=== PATIENT | male | born 2000 | race Caucasian/White ===

== ENCOUNTER 2020-01-03 10:51 | Emergency (ER) | payer SELFPAY | END 2020-01-03 11:08 | disposition left against medical advice (07) | LOC: JD.ED 10:51 | DX: Z53.21 Procedure and treatment not carried out due to patient leaving prior to being seen by health care provider (principal) ==

== ENCOUNTER 2022-04-23 13:20 | Emergency (ER) | payer SELFPAY ==
[2022-04-23] MEDS ORDERED: Ketorolac 60 MG/2 ML SDV IM ONE (14:32)
== END 2022-04-23 15:24 | disposition home or self-care (01) ==
LOC: JD.ED 13:20
DX: S16.1XXA Strain of muscle, fascia and tendon at neck level, initial encounter (principal); I10 Essential (primary) hypertension; X50.1XXA Overexertion from prolonged static or awkward postures, initial encounter
CPT/HCPCS: 96372; 99283; J1885

== ENCOUNTER 2022-05-17 07:12 | Emergency (ER) | payer MEDICAID | END 2022-05-17 09:05 | disposition home or self-care (01) | LOC: JD.ED 07:12 | DX: R07.89 Other chest pain (principal) | CPT/HCPCS: 36415; 71046; 71046-26; 80053; 84484; 85025; 85379; 86140; 93005; 99285 ==